=== PATIENT | female | born 1990 | race Caucasian/White ===

== ENCOUNTER 2018-11-27 15:28 | Emergency (ER) | payer OTHER ==
--- NOTE | 2018-11-27 15:48 | PDOC ---
Rapid Medical Evaluation Chief Complaint: Vaginal Sxs Time Seen by Provider: 11/27/18 15:45 Medical Evaluation: 11/27/18 15:46 The patient presents with a chief complaint of: white vag discharge and itching , urinary freq, lower abd cramping normal menses I have performed a brief in-person evaluation of this patient; Pertinent physical exam findings: ambulatory, VSS, mild mid suprapubic tenderness, no cva tenderness I have ordered the following: ua, hcg, The patient will proceed to the ED for further evaluation. Discharge Disposition - Diagnosis Vaginal discharge - Referrals - Patient Instructions - Post Discharge Activity
[2018-11-27 15:49] VITALS: BP 105/70; PULSE 72; TEMP 98.6; BMI 64.5
[2018-11-27 16:41] LABS: HCG,QUALITATIVE URINE Negative
[2018-11-27 16:45] LABS: URINE APPEARANCE CLEAR; URINE BILIRUBIN NEGATIVE (NEGATIVE); URINE COLOR YELLOW; URINE GLUCOSE (UA) NEGATIVE (NEGATIVE); URINE KETONE NEGATIVE (NEGATIVE); URINE LEUK ESTERASE NEGATIVE (NEGATIVE); URINE NITRITE NEGATIVE (NEGATIVE); URINE PROTEIN NEGATIVE (NEGATIVE); URINE UROBILINOGEN 0.2 mg/dL (0.2-1.0)
--- NOTE | 2018-11-27 17:16 | PDOC ---
History of Present Illness - General Chief Complaint: Vaginal Sxs Stated Complaint: VAGINAL INFECTION Time Seen by Provider: 11/27/18 15:45 History Source: Patient Exam Limitations: No Limitations Past History - Travel Traveled outside of the country in the last 30 days: No Close contact w/someone who was outside of country & ill: No - Past Medical History Allergies/Adverse Reactions: Allergies Allergy/AdvReac Type Severity Reaction Status Date / Time No Known Allergies Allergy Verified 11/27/18 15:49 Home Medications: Ambulatory Orders metroNIDAZOLE [Metronidazole] 2 gm PO ONCE #4 tablet 11/27/18 - Suicide/Smoking/Psychosocial Hx Smoking History: Never smoked Have you smoked in the past 12 months: No Information on smoking cessation initiated: No Hx Alcohol Use: No Drug/Substance Use Hx: No Review of Systems - Review of Systems Able to Perform ROS?: Yes Comments:: 11/27/18 19:13 CONSTITUTIONAL: Absent: fever, chills, diaphoresis, generalized weakness, malaise, loss of appetite HEENT: Absent: rhinorrhea, nasal congestion, throat pain, throat swelling, difficulty swallowing, mouth swelling, ear pain, eye pain, visual Changes CARDIOVASCULAR: Absent: chest pain, loss of consciousness, palpitations, irregular heart rate, peripheral edema RESPIRATORY: Absent: cough, shortness of breath, dyspnea with exertion, orthopnea, wheezing, stridor, hemoptysis GASTROINTESTINAL: Present: abdominal pain Absent: abdominal distension, nausea, vomiting, diarrhea , constipation, melena, hematochezia GENITOURINARY: Present: frequency, foul smelling discharge. Absent: dysuria, urgency, hesitancy , hematuria, flank pain, genital pain MUSCULOSKELETAL: Absent: myalgia, arthralgia, joint swelling SKIN: Absent: rash, itching, pallor HEMATOLOGIC/IMMUNOLOGIC: Absent: easy bleeding, easy bruising, lymphadenopathy, frequent infections ENDOCRINE: Absent: unexplained weight gain, unexplained weight loss, heat intolerance, cold intolerance NEUROLOGIC: Absent: headache, focal weakness or paresthesias, dizziness, unsteady gait, seizure, mental status changes, bladder or bowel incontinence PSYCHIATRIC: Absent: anxiety, depression, suicidal or homicidal ideation, hallucinations. Is the patient limited Jordanian proficient: No *Physical Exam - Vital Signs Last Vital Signs Temp Pulse Resp BP Pulse Ox 98.6 F 72 18 105/70 100 11/27/18 15:45 11/27/18 15:45 11/27/18 15:45 11/27/18 15:45 11/27/18 15:45 - Physical Exam Comments: 11/27/18 19:23 GENERAL: Well developed, well nourished. Awake and alert. No acute distress. ABDOMINAL: Suprapubic discomfort. Soft. Non-distended. No rebound or guarding. No organomegaly. Normoactive bowel sounds. Pelvic: External genitalia normal without lesions. Vaginal vault with white creamy foul smelling discharge. Cervix is long and closed. No cervical motion tenderness. Uterus is nontender and normal in size. Adnexa are nontender and without masses. MUSCULOSKELETAL Normal range of motion at all joints. No bony deformities or tenderness. No CVA tenderness. EXTREMITIES: No cyanosis. No clubbing. No edema. No calf tenderness. SKIN: Warm and dry. Normal capillary refill. No rashes. No jaundice. NEUROLOGICAL: Alert, awake, appropriate. Cranial nerves 2-12 intact. No deficits to light touch and temperature in face, upper extremities and lower extremities. No motor deficits in the in face, upper extremities and lower extremities. Normoreflexic in the upper and lower extremities. Normal speech. Toes are down- going bilaterally. Gait is normal without ataxia. PSYCHIATRIC: Cooperative. Good eye contact. Appropriate mood and affect. ED Treatment Course - ADDITIONAL ORDERS Additional order review: Laboratory Results 11/27/18 16:00 Urine Color Yellow Urine Appearance Clear Urine pH 8.0 Ur Specific [place] 1.022 Urine Protein Negative Urine Glucose (UA) Negative Urine Ketones Negative Urine Blood Negative Urine Nitrite Negative Urine Bilirubin Negative Urine Urobilinogen 0.2 Ur Leukocyte Esterase Negative Urine HCG, Qual Negative Medical Decision Making - Medical Decision Making 11/27/18 19:24 The patient is a 28-year-old female with no past medical history who presents to the emergency department today for foul-smelling vaginal discharge and vaginal pain. She states that she gets frequent vaginal infections. She is new to the area and does not have an [employer] WORKER. She also admits to some lower abdominal discomfort and urinary frequency. Denies fevers, chills, nausea, vomiting, diarrhea, dysuria, hematuria. Patient states her last menstrual cycle was last week. A/P: Vaginal discharge On exam patient with cranial white foul-smelling vaginal discharge. Culture taken Suspected bacterial vaginosis. Adnexa are soft nontender no CMT on exam. UA is negative for infection. Suspect that the suprapubic discomfort is from the vaginal infection. We'll treat with metronidazole as an outpatient. COUNSELING DEPARTMENT CHAIR follow-up given. Discharge home I discussed the physical exam findings, ancillary test results and final diagnoses with the patient. I answered all of the patient's questions. The patient was satisfied with the care received and felt comfortable with the discharge plan and treatment plan. The Patient agrees to follow up with the primary care physician/specialist within 24-72 hours. Return precautions were given. *DC/Admit/Observation/Transfer Diagnosis at time of Disposition: Vaginal discharge, Bacterial vaginosis - Discharge Dispostion Disposition: HOME Condition at time of disposition: Stable Decision to Admit order: No - Prescriptions Prescriptions: metroNIDAZOLE [Metronidazole] 2 gm PO ONCE #4 tablet - Referrals Referrals: Venkat Lockhart MD [Staff Physician] - - Patient Instructions Printed Discharge Instructions: DI for Bacterial Vaginosis Additional Instructions: You were evaluated for your discharge today You have a bacterial vaginosis Take the metronidazole as directed. You urine was negative for infection Follow up with [employer]. A referral has been provided Return to the ED for any new or worsening symptoms Usted fue evaluado para smith silvio hoy Tienes ravinder vaginosis bacteriana. [place] el metronidazol segn las indicaciones. Tu orina fue negativa para la infeccin Seguimiento con OB / COUNSELING DEPARTMENT CHAIR. Se kinney proporcionado ravinder referencia Regrese a la shaye de emergencias para cualquier sntoma nuevo o que empeore Print Language: [place] - Post Discharge Activity Forms/Work/School Notes: Back to Work
== END 2018-11-27 17:21 | disposition home or self-care (01) ==
LOC: JERFT 15:28
DX: N76.0 Acute vaginitis (principal); B96.89 Other specified bacterial agents as the cause of diseases classified elsewhere
CPT/HCPCS: 81003; 84703; 87070; 87077; 87086; 87205; 99281-25